=== PATIENT | male | born 1965 | race African-American/Black ===

== ENCOUNTER 2017-03-16 15:23 | Emergency (ER) | payer BC, MEDICARE ==
[2017-03-16] MEDS ORDERED: IPRATROPIUM/ALBUTEROL 0.5-2.5 MG/3 ML AMPUL NEB ONE (17:02)
--- NOTE | 2017-03-16 17:02 | ER Document Report ---
ED Medical Screen (RME) - General Chief Complaint: Leg Pain Stated Complaint: LEG PAIN, FLUID IN LEGS Time Seen by Provider: 03/16/17 17:01 Mode of Arrival: Wheelchair Information source: Patient Notes: This is a pleasant 52-year-old man with a history of hypertension, morbid obesity who presents to the emergency room with progressive shortness of breath , increased swelling and weight gain. Patient is followed by Dr. Jacobsen. He denies any chest pain. He denies any fever, chills, nausea or vomiting. TRAVEL OUTSIDE OF THE [place] IN LAST 30 DAYS: No - Related Data Allergies/Adverse Reactions: No Known Allergies Allergy (Verified 03/16/17 16:53) Past Medical History Renal/ Medical History: Denies: Hx Peritoneal Dialysis Psychiatric Medical History: Denies: Hx Depression Physical Exam - Vital signs Vitals: Temp Pulse Resp BP Pulse Ox 97.9 F 83 20 122/89 H 93 03/16/17 15:27 03/16/17 15:27 03/16/17 15:27 03/16/17 15:27 03/16/17 15:27 Course - Vital Signs Vital signs: Temp Pulse Resp BP Pulse Ox 97.9 F 83 20 122/89 H 93 03/16/17 15:27 03/16/17 15:27 03/16/17 15:27 03/16/17 15:27 03/16/17 15:27
[2017-03-16] MEDS ORDERED: FUROSEMIDE INJ/PF 40 MG/4 ML SDV IV ONE (17:19)
--- NOTE | 2017-03-16 20:58 | ER Document Report ---
ED General - General Chief Complaint: Leg Pain Stated Complaint: LEG PAIN, FLUID IN LEGS Time Seen by Provider: 03/16/17 17:01 Mode of Arrival: Wheelchair Notes: Patient is a 52-year-old male with past medical history of morbid obesity, congestive heart failure, diabetes and hypertension who presents with one month of persistent right lateral lower extremity pain and swelling. Patient states this is unchanged today but he presented due to the ongoing discomfort. Does describe a dull, constant aching, throbbing pain to the bilateral lower extremities. He denies contrary to triage assessment any shortness of breath. Likewise he denies any exertional dyspnea, exertional chest pain, chest pain, nausea, vomiting or abdominal pain. He is taking furosemide 20 mg twice a day and states this is not improved his lower extremity swelling. He has not noted anything seems to worsen his pain. He is scheduled see his primary care doctor at the end of the week for these complaints. TRAVEL OUTSIDE OF THE [place] IN LAST 30 DAYS: No - Related Data Allergies/Adverse Reactions: No Known Allergies Allergy (Verified 03/16/17 16:53) Past Medical History - General Information source: Patient - Social History Smoking Status: Never Smoker Frequency of alcohol use: None Drug Abuse: None Lives with: Family Family History: Reviewed & Not Pertinent Patient has suicidal ideation: No Patient has homicidal ideation: No Renal/ Medical History: Denies: Hx Peritoneal Dialysis Psychiatric Medical History: Denies: Hx Depression Review of Systems - Review of Systems Notes: Constitutional: Negative for fever. HENT: Negative for sore throat. Eyes: Negative for visual changes. Cardiovascular: Negative for chest pain. Respiratory: Negative for shortness of breath. Gastrointestinal: Negative for abdominal pain, vomiting or diarrhea. Genitourinary: Negative for dysuria. Musculoskeletal: Negative for back pain. Positive for bilateral lower extremity pain Skin: Negative for rash. Neurological: Negative for headaches, weakness or numbness. 10 point ROS negative except as marked above and in HPI. Physical Exam - Vital signs Vitals: Temp Pulse Resp BP Pulse Ox 97.9 F 83 20 122/89 H 93 03/16/17 15:27 03/16/17 15:27 03/16/17 15:27 03/16/17 15:27 03/16/17 15:27 Interpretation: Normal Notes: PHYSICAL EXAMINATION: GENERAL: Well-appearing, well-nourished and in no acute distress. HEAD: Atraumatic, normocephalic. EYES: Pupils equal round and reactive to light, extraocular movements intact, sclera anicteric, conjunctiva are normal. ENT: nares patent, oropharynx clear without exudates. Moist mucous membranes. NECK: Normal range of motion, supple without lymphadenopathy LUNGS: Breath sounds clear to auscultation bilaterally and equal. No wheezes rales or rhonchi. HEART: Regular rate and rhythm without murmurs ABDOMEN: Soft, nontender, normoactive bowel sounds. No guarding, no rebound. No masses appreciated. EXTREMITIES: Normal range of motion, 4+ pitting edema bilateral lower extremities NEUROLOGICAL: No focal neurological deficits. Moves all extremities spontaneously and on command. PSYCH: Normal mood, normal affect. SKIN: Warm, Dry, normal turgor, no rashes or lesions noted. Course - Re-evaluation Re-evalutation: 03/16/17 20:55 Patient presents with concerns regarding his bilateral lower extremity edema and pain that has been present for the past 1 month. Nothing is new or different today. He is overall well in appearance although is morbidly obese. Contrary to triage assessment, to me he denies any shortness of breath of any kind either at rest or on exertion. He states the only reason he is here today is because of his lower stomach swelling and the pain comes along with it. He has been taking Lasix 20 mg twice daily and this has not improved his symptoms so he is looking for an alternative solution. We discussed at length the importance of weight loss as this is the primary culprit for most of his symptoms. I've also recommended that he start compression stockings. He has a follow-up with his primary care doctor in 2 days. I do not believe any labs are indicated has again patient is denying any symptoms beyond lower extremity edema and pain. The swelling is symmetric and I did not suspect an acute DVT. At this time will discharge with return precautions and follow-up recommendations. Verbal discharge instructions given a the bedside and opportunity for questions given. Medication warnings reviewed. Patient is in agreement with this plan and has verbalized understanding of return precautions and the need for primary care follow-up in the next 24-72 hours. - Vital Signs Vital signs: Temp Pulse Resp BP Pulse Ox 97.9 F 83 18 124/90 H 96 03/16/17 15:27 03/16/17 15:27 03/16/17 20:03 03/16/17 20:03 03/16/17 20:03 - Diagnostic Test Radiology reviewed: Image reviewed, Reports reviewed Radiology results interpreted by me: 03/17/17 01:00 Chest x-ray: No pulmonary edema Discharge - Discharge Clinical Impression: Lower extremity edema Condition: Good Disposition: HOME, SELF-CARE Additional Instructions: Please follow-up with your primary care doctor for thigh-high compression stockings which will significantly assist with your swelling in your legs. Please also avoid all sugared beverages and pursue an weight loss program going 4-5 pounds per month of weight loss as this will make a dramatic improvement in your overall health and will reduce the swelling in your legs permanently. Return if you develop shortness of breath, chest pain, weakness, vomiting or any other symptoms that are worrisome to you. Referrals: LINK PORTER MD [Primary Care Provider] - Follow up as needed
[2017-03-16 21:46] VITALS: BP 124/90
== END 2017-03-16 21:49 | disposition home or self-care (01) ==
LOC: ER 15:23
DX: R60.9 Edema, unspecified (principal); M79.604 Pain in right leg; E66.01 Morbid (severe) obesity due to excess calories; I50.9 Heart failure, unspecified
CPT/HCPCS: 94640; 99283; 71010; A9270; J7620

== ENCOUNTER 2017-03-21 12:45 | Inpatient (IN) | payer BC, MEDICARE ==
--- NOTE | 2017-03-21 13:48 | ER Document Report ---
ED General - General Mode of Arrival: Medic Information source: Patient TRAVEL OUTSIDE OF THE [place] IN LAST 30 DAYS: No - HPI Patient complains to provider of: bilateral lower extremity swelling Onset: Other - 2 days ago Associated symptoms: Other - see notes above <JAEL ESPINOZA - Last Filed: 03/21/17 13:49> <PRAVEEN KENNY - Last Filed: 03/21/17 15:57> <DON FERNANDEZ - Last Filed: 03/21/17 16:55> - General Chief Complaint: Leg Swelling Stated Complaint: WEAKNESS Time Seen by Provider: 03/21/17 13:28 Notes: 52 year old male with history of CHF, diabetes, and hypertension presents to the ED via EMS complaining of bilateral leg swelling and difficulty walking that started 2 days ago. Patient states that he was diagnosed with CHF 2 years ago and reports that his fluid medications have not been changed since then. Patient then explains that "one month to one year" ago his Lasix was increased to 60 mg BID. Patient's brother states that the patient generally weighs 250- 300 lbs, and since he was diuresed on 03/15/2014, secondary to CHF, the patient' s weight has been increasing. Patient's primary care provider is Dr. Porter. Patient has an appointment with his primary care provider on 03/22/2017. EMS reports patient was 98% on room air. (JAEL ESPINOZA) This 52-year-old morbidly obese male with dilated cardiomyopathy, EF of 20-25%, diabetes and hypertension comes emergency room complaining of leg swelling for 2 days and weakness, not able to get up and walk. He weighs 475 pounds, family states he normally weighs 250 pounds and that this is all fluid. He was admitted in 2013 with anasarca and diuresed. By history he had his Lasix increased from 40 twice a day to 60 twice a day possibly a month ago. Family also reports that he nods off when they're talking to him and he sleeps in a recliner. The patient tells me that he has been a little short of breath for several months and nothing is really different today. The chest x-ray shows a very large heart without heart failure. The patient's creatinine is 2.43 with a BUN is 67. The last time his lab work was checked was 10/07/2015 when he had a BUN of 26 and creatinine 1.47 It is difficult to know how much of this is progression of renal failure, and how much of it is due to excessive diuresis. (DON FERNANDEZ) - Related Data Allergies/Adverse Reactions: No Known Allergies Allergy (Verified 03/16/17 16:53) Past Medical History - General Information source: Patient, [facility] Records - Social History Smoking Status: Former Smoker Family History: Reviewed & Not Pertinent - Past Medical History Cardiac Medical History: Reports: Hx Congestive Heart Failure, Hx Hypertension Pulmonary Medical History: Reports: Other - obstructive sleep apnea Endocrine Medical History: Reports: Hx Diabetes Mellitus Type 2 Renal/ Medical History: Denies: Hx Peritoneal Dialysis Psychiatric Medical History: Denies: Hx Depression <JAEL ESPINOZA - Last Filed: 03/21/17 13:49> Review of Systems - Review of Systems Constitutional: No symptoms reported EENT: No symptoms reported Cardiovascular: No symptoms reported Respiratory: No symptoms reported Gastrointestinal: No symptoms reported Genitourinary: No symptoms reported Male Genitourinary: No symptoms reported Musculoskeletal: See HPI, Leg swelling - bilateral, Other - difficulty walking Skin: No symptoms reported Hematologic/Lymphatic: No symptoms reported Neurological/Psychological: No symptoms reported -: Yes All other systems reviewed and negative <JAEL ESPINOZA - Last Filed: 03/21/17 13:49> Physical Exam - General General appearance: Alert In distress: None - HEENT Head: Normocephalic, Atraumatic Eyes: Normal Extraocular movements intact: Yes Pupils: PERRL - Respiratory Respiratory status: Tachypnea - 100% on nasal air - Cardiovascular Rhythm: Regular Heart sounds: Normal auscultation - Abdominal Inspection: Morbidly Obese Distension: No distension Tenderness: Nontender - Back Back: Normal - Extremities General upper extremity: Normal inspection, Normal ROM General lower extremity: Edema - Chronic bilateral lower extremity pitting edema.. No: Normal inspection - Neurological Neuro grossly intact: Yes - Psychological Associated symptoms: Normal affect, Normal mood - Skin Skin Temperature: Warm Skin Moisture: Dry Skin irregularity: other - Chronic bilateral lower extremity skin thickening. <JAEL ESPINOZA - Last Filed: 03/21/17 13:49> Course - Laboratory Result Diagrams: 03/21/17 14:33 03/21/17 14:33 <PRAVEEN KENNY - Last Filed: 03/21/17 15:57> - Laboratory Result Diagrams: 03/21/17 14:33 03/21/17 14:33 - Diagnostic Test Radiology reviewed: Image reviewed - Cardiomegaly, no CHF, Reports reviewed - Cardiomegaly without heart failure - EKG Interpretation by Me EKG shows normal: Sinus rhythm, [place], Intervals. abnormal: QRS Complexes - Borderline inferior Q waves, ST-T Waves - Minimal ST depression in inferior leads Rate: Normal - 92 Rhythm: NSR [place]/QRS: IVCD - Consults Dr. Barillas Time consulted: 16:50 Consulted provider: will see as inpatient <DON FERNANDEZ - Last Filed: 03/21/17 16:55> - Vital Signs Vital signs: Temp Pulse Resp BP Pulse Ox 98.6 F 111 H 25 H 105/56 L 98 03/21/17 13:05 03/21/17 13:05 03/21/17 15:01 03/21/17 15:02 03/21/17 15:02 - Laboratory Laboratory results interpreted by me: 03/21/17 03/21/17 03/21/17 14:33 14:33 14:33 WBC 14.2 H RBC 3.40 L Hgb 10.5 L Hct 32.2 L RDW 17.3 H Plt Count 141 L Seg Neuts % (Manual) 79 H Lymphocytes % (Manual) 2 L Monocytes % (Manual) 18 H Abs Neuts (Manual) 11.2 H Abs Lymphs (Manual) 0.3 L Abs Monocytes (Manual) 2.6 H Sodium 136.0 L Chloride 93 L Carbon Dioxide 33 H BUN 67 H Creatinine 2.43 H Est GFR ( Amer) 34 L Est GFR (Non-Af Amer) 28 L AST 12 L NT-Pro-B Natriuret Pep 3470 H Procedures - Additional Procedures IV insertion Time performed: 14:45 Additional Procedures: IV insertion - 18 guage IV inserted into left brachial vein under ultrasound guidance due to difficulty obtaining access by RN. <PRAVEEN KENNY - Last Filed: 03/21/17 15:57> Discharge <JAEL ESPINOZA - Last Filed: 03/21/17 13:49> <PRAVEEN KENNY - Last Filed: 03/21/17 15:57> - Discharge Admitting Provider: Ann-Marie Barillas covering Unit Admitted: Telemetry <DON FERNANDEZ - Last Filed: 03/21/17 16:55> - Discharge Clinical Impression: Renal insufficiency, Dehydration, Dilated cardiomyopathy, Obstructive sleep apnea syndrome Morbid obesity Qualifiers: Obesity type: due to excess calories Qualified Code(s): E66.01 - Morbid (severe ) obesity due to excess calories Hypotension Qualifiers: Hypotension type: unspecified hypotension type Qualified Code(s): I95.9 - Hypotension, unspecified Condition: Stable Disposition: ADMITTED INPATIENT Referrals: LINK PORTER MD [Primary Care Provider] - Follow up as needed Scribe Documentation - Scribe Written by Scribe:: Malina Shepard, 03/21/2017 1353 acting as scribe for :: Rashmi <JAEL ESPINOZA - Last Filed: 03/21/17 13:49>
[2017-03-21 14:55] LABS: HEMATOCRIT 32.2 % (37.9-51.0); HEMOGLOBIN 10.5 g/dL (13.5-17.0); HGB HCT DIFFERENCE -0.7; MEAN CORPUSCULAR HEMOGLOBIN 30.8 pg (27.0-33.4); MEAN CORPUSCULAR HGB CONC 32.5 g/dL (32.0-36.0); MEAN CORPUSCULAR VOLUME 95 fl (80-97); RED CELL DISTRIBUTION WIDTH 17.3 % (11.5-14.0); WHITE BLOOD COUNT 14.2 10^3/uL (4.0-10.5)
[2017-03-21 15:12] LABS: ALANINE AMINOTRANSFERASE 28 U/L (21-72); ALBUMIN 3.5 g/dL (3.5-5.0); ALKALINE PHOSPHATASE 62 U/L (38-126); ANION GAP 10 (5-19); ASPARTATE AMINO TRANSFERASE 12 U/L (17-59); BILIRUBIN,DIRECT 0.4 mg/dL (0.0-0.4); BILIRUBIN,TOTAL 0.7 mg/dL (0.2-1.3); BLOOD UREA NITROGEN 67 mg/dL (7-20); CALCIUM 9.1 mg/dL (8.4-10.2); CARBON DIOXIDE 33 mmol/L (22-30); CHLORIDE 93 mmol/L (98-107); CREATINE KINASE 55 U/L (55-170); CREATININE RESULT 2.43 mg/dL (0.52-1.25); GLUCOSE 103 mg/dL (75-110); MAGNESIUM 1.7 mg/dL (1.6-2.3); POTASSIUM 4.3 mmol/L (3.6-5.0); TOTAL PROTEIN 7.6 g/dL (6.3-8.2)
[2017-03-21 15:24] LABS: CREATINE KINASE MB 0.61 ng/mL (<4.55)
[2017-03-21 15:28] LABS: BASOPHILS % (MANUAL) 0 % (0-2); EOSINOPHILS % (MANUAL) 1 % (0-6); LYMPHOCYTES % (MANUAL) 2 % (13-45); TOTAL CELLS COUNTED 100; TROPONIN I 0.07 ng/mL
[2017-03-21 15:29] LABS: ANISOCYTOSIS 1+; HYPOCHROMASIA SLIGHT; POIKILOCYTOSIS SLIGHT; POLYCHROMASIA SLIGHT
[2017-03-21 15:30] LABS: OVALOCYTES SLIGHT
[2017-03-21 16:05] LABS: APPEARANCE,URINE CLEAR; BILIRUBIN,URINE NEGATIVE (NEGATIVE); GLUCOSE, URINE NEGATIVE (NEGATIVE); KETONES,URINE NEGATIVE (NEGATIVE); LEUKOCYTE ESTERASE,URINE NEGATIVE (NEGATIVE); NITRITE,URINE NEGATIVE (NEGATIVE); PROTEIN,URINE NEGATIVE (NEGATIVE); URINE SPECIFIC GRAVITY 1.011; UROBILINOGEN,URINE NEGATIVE mg/dL (<2.0)
[2017-03-21] MEDS ORDERED: NORMAL SALINE 1000 ML 1,000 ML IV PRN (20:20)
[2017-03-21] MEDS ORDERED: LISINOPRIL 10 MG TABLET PO ONE (20:45)
[2017-03-21 21:53] LABS: PROTHROMBIN TIME 14.8 SEC (11.4-15.4)
[2017-03-21 21:54] LABS: PARTIAL THROMBOPLASTIN TIME 31.5 SEC (23.5-35.8)
[2017-03-21 22:04] LABS: CREATININE RESULT 2.81 mg/dL (0.52-1.25)
--- NOTE | 2017-03-21 22:45 | EKG REPORT ---
SEVERITY:- ABNORMAL ECG - SINUS RHYTHM NONSPECIFIC INTRAVENTRICULAR CONDUCTION DELAY BORDERLINE INFERIOR Q WAVES MINIMAL ST DEPRESSION, INFERIOR LEADS : Confirmed by: Rae Wright 21-Mar-2017 22:44:41
[2017-03-22] MEDS: HEPARIN SOD (PORCINE) 5,000 UNIT/ML 1 ML SYRINGE SUBCUT SCH ×4 (00:32→21:42)
[2017-03-22] MEDS ORDERED: LISINOPRIL 10 MG TABLET PO ONE (00:45)
[2017-03-22 01:07] LABS: HEMATOCRIT 30.3 % (37.9-51.0); HEMOGLOBIN 10.1 g/dL (13.5-17.0); MEAN CORPUSCULAR HEMOGLOBIN 31.1 pg (27.0-33.4); MEAN CORPUSCULAR HGB CONC 33.3 g/dL (32.0-36.0); MEAN CORPUSCULAR VOLUME 93 fl (80-97); RED BLOOD COUNT 3.25 10^6/uL (4.35-5.55); RED CELL DISTRIBUTION WIDTH 17.4 % (11.5-14.0); WHITE BLOOD COUNT 15.6 10^3/uL (4.0-10.5)
[2017-03-22] MEDS: CARVEDILOL 12.5 MG TABLET PO SCH ×3 (01:12→21:48)
[2017-03-22] MEDS ORDERED: NORMAL SALINE 1000 ML 1,000 ML IV PRN (05:25)
[2017-03-22] MEDS ORDERED: LISINOPRIL 10 MG TABLET PO SCH (10:00)
[2017-03-22] MEDS ORDERED: DEXTROSE 50%-WATER 25 GM/50 ML DISP.SYRIN IV PRN ×2 (13:31)
[2017-03-22] MEDS ORDERED: GLUCAGON,HUMAN RECOMB 1 MG INJ IM PRN (13:31)
[2017-03-22] MEDS ORDERED: INSULIN LISPRO 100 UNIT/ML 3 ML VIAL SUBCUT PRN (13:31)
[2017-03-22] MEDS ORDERED: DEXTROSE 40% GEL 15 GM TUBE PO PRN ×2 (13:31)
--- NOTE | 2017-03-22 13:59 | PDOC H&P ---
History of Present Illness Admission Date/PCP: 03/21/17 23:27 [facility] [place] Patient complains of: worsening leg swelling History of Present Illness: RACHEL HUSSEIN is a 52 year old male known to my practice, very non-compliant with follow up with last office visit 10/15/2016. He presented to ED via EMS service with complain of worsening bilateral leg swelling. Patient was not very reliable with history taking. He reported that he saw foot doctor recently and he was started on Ibuprofen 800 mg for which he consumed about 4-5 tablets daily for leg and foot pain. He denied any significant chest pain or shortness of breath at the time of my evaluation but remain on supplemental oxygen. Mother at bedside reported that patient is not very concern about his health despite her input. His brother recently. There is reported increase weight gain, increase sleepiness, generalized weakness and limitation in walking and transfer. His initial evaluation in the ED was significant for anasarca level fluid retention. His morbidities include dilated cardiomyopathy with systolic CHF and LVEF in range of 20-25%, DM type 2, Obstructive sleep apnea, morbid obesity, and hypertension. Past Medical History Cardiac Medical History: Reports: Congestive Heart Failure, Hypertension Pulmonary Medical History: Reports: Other - obstructive sleep apnea Endocrine Medical History: Reports: Diabetes Mellitus Type 2 GI Medical History: Reports: Gastroesophageal Reflux Disease Psychiatric Medical History: Denies: Depression Social History Smoking Status: Former Smoker Last Time Smoked: 4 YRS Frequency of Alcohol Use: None Hx Recreational Drug Use: No Hx Prescription Drug Abuse: No - Advance Directive Resuscitation Status: Full Code Family History Family History: Reviewed & Not Pertinent Parental Family History Reviewed: Yes Children Family History Reviewed: Yes Sibling(s) Family History Reviewed.: Yes Medication/Allergy Home Medications: Aspirin [Adult Low Dose Aspirin EC] 81 mg PO DAILY 03/22/17 Carvedilol [Coreg 25 mg Tablet] 25 mg PO Q12 03/22/17 Colchicine [Colchicine 0.6 mg Tablet] 0.6 mg PO TID 03/22/17 Esomeprazole Magnesium [Nexium] 40 mg PO DAILY 03/22/17 Furosemide [Lasix] 40 mg PO BID 03/22/17 Ibuprofen [Motrin 800 mg Tablet] 800 mg PO MEALS 03/22/17 Lisinopril [Prinivil] 20 mg PO DAILY 03/22/17 Metolazone [Zaroxolyn 2.5 mg Tablet] 2.5 mg PO DAILY 03/22/17 Allergies/Adverse Reactions: No Known Allergies Allergy (Verified 03/16/17 16:53) Review of Systems Constitutional: PRESENT: fatigue, weakness, weight gain. ABSENT: as per HPI, anorexia, chills, fever(s), headache(s), night sweats, weight loss, other Eyes: ABSENT: visual disturbances Ears: ABSENT: hearing changes Nose, Mouth, and Throat: ABSENT: as per HPI, headache(s), mouth pain, sore throat, vertigo, other Cardiovascular: PRESENT: dyspnea on exertion, edema. ABSENT: as per HPI, chest pain, orthropnea, palpitations, other Respiratory: ABSENT: as per HPI, cough, dyspnea, hemoptysis, sputum, other Gastrointestinal: ABSENT: abdominal pain, constipation, diarrhea, hematemesis, hematochezia, nausea, vomiting Musculoskeletal: PRESENT: joint swelling - related to his anasarca level edema Integumentary: ABSENT: rash, wounds Neurological: PRESENT: abnormal speech - related to his acute illness, confusion - related to acute illness, weakness Psychiatric: ABSENT: anxiety, depression, homidical ideation, suicidal ideation Hematologic/Lymphatic: ABSENT: easy bleeding, easy bruising, lymphadenopathy Physical Exam Vital Signs: Temp Pulse Resp BP Pulse Ox 99.2 F 94 16 108/90 H 99 03/22/17 11:35 03/22/17 11:35 03/22/17 11:35 03/22/17 11:35 03/22/17 11:35 Intake & Output 03/21/17 03/22/17 03/23/17 06:59 06:59 06:59 Intake Total 630 Balance 630 Weight 205.7 kg General appearance: PRESENT: no acute distress, morbidly obese Head exam: PRESENT: atraumatic, normocephalic Eye exam: PRESENT: conjunctiva pink, EOMI, PERRLA. ABSENT: scleral icterus Ear exam: PRESENT: normal external ear exam Mouth exam: PRESENT: moist, tongue midline Teeth exam: ABSENT: dental caries, dental tenderness, edentulous, poor dentation , other Throat exam: ABSENT: post pharyngeal erythema, tonsillar erythema, tonsillar exudate, tonsillogmegaly, other Neck exam: PRESENT: full ROM. ABSENT: carotid bruit, JVD, lymphadenopathy, thyromegaly Respiratory exam: PRESENT: clear to auscultation anika, decreased breath sounds - at lung bases Cardiovascular exam: PRESENT: RRR. ABSENT: diastolic murmur, rubs, systolic murmur Vascular exam: PRESENT: normal capillary refill. ABSENT: pallor GI/Abdominal exam: PRESENT: normal bowel sounds, soft. ABSENT: distended, guarding, mass, organolmegaly, rebound, tenderness Rectal exam: PRESENT: deferred Extremities exam: PRESENT: pedal edema - bilateral lower extremties edema to anasarca level extended to lower back region Musculoskeletal exam: PRESENT: deformity - related to arthritis joint involvement Neurological exam: PRESENT: alert, awake, oriented to person, oriented to place , oriented to time, CN II-XII grossly intact, motor sensory deficit. ABSENT: oriented to situation Psychiatric exam: PRESENT: appropriate affect, normal mood. ABSENT: homicidal ideation, suicidal ideation Skin exam: PRESENT: dry, intact, warm. ABSENT: cyanosis, rash Results Laboratory Results: 03/22/17 00:59 03/21/17 03/22/17 23:34 00:59 WBC Cancelled 15.6 H RBC Cancelled 3.25 L Hgb Cancelled 10.1 L Hct Cancelled 30.3 L MCV Cancelled 93 MCH Cancelled 31.1 MCHC Cancelled 33.3 RDW Cancelled 17.4 H Plt Count Cancelled 124 L Impressions: Chest X-Ray 03/21/17 13:41 IMPRESSION: HEART ENLARGED WITHOUT FAILURE. NO OTHER SIGNIFICANT RADIOGRAPHIC FINDING IN THE CHEST. Assessment & Plan - Diagnosis (1) Acute worsening of stage 3 chronic kidney disease Is this a current diagnosis for this admission?: YesPlan: See admitting attending orders. (2) Chronic systolic CHF (congestive heart failure), NYHA class 3 Is this a current diagnosis for this admission?: YesPlan: See admitting attending orders. (3) Dilated cardiomyopathy Is this a current diagnosis for this admission?: YesPlan: See admitting attending orders. (4) Morbid obesity Qualifiers: Obesity type: due to excess calories Qualified Code(s): E66.01 - Morbid (severe) obesity due to excess calories Is this a current diagnosis for this admission?: YesPlan: See admitting attending orders. (5) Obstructive sleep apnea Is this a current diagnosis for this admission?: YesPlan: See admitting attending orders. - Time Time Spent: 50 to 70 Minutes Critical Time spent with patient: 15-24 minutes Medications reviewed and adjusted accordingly: Yes Anticipated discharge: SNF Within: Other - Inpatient Certification Based on my medical assessment, after consideration of the patient's comorbidities, presenting symptoms, or acuity I expect that the services needed warrant INPATIENT care.: Yes I certify that my determination is in accordance with my understanding of Medicare's requirements for reasonable and necessary INPATIENT services [42 CFR 412.3e].: Yes Medical Necessity: Failure to Improve With Outpatient Therapy, Need Close Monitoring Due to Risk of Patient Decompensation, Need For Continuous Telemetry Monitoring, Risk of Complication if Not Cared For in Hospital Post Hospital Care: D/C Data Control Clerk Supervisor Documentation - Plan Summary Plan Summary: See admitting attending orders.
--- NOTE | 2017-03-22 15:07 | PDOC CONSULTATION ---
Consultation Consult Date: 03/22/17 Consult reason:: Acute on chronic kidney disease. History of Present Illness Admission Date/PCP: 03/21/17 23:27 LINK PORTER History of Present Illness: RACHEL HUSESIN is a 52 year old male with a history of diabetes mellitus, obstructive sleep apnea but not on C Pap, morbid obesity, dilated cardiomyopathy /chronic congestive heart failure, very non-compliant with follow up with his primary care physician Dr. Porter , presented to ED via EMS service with complain of worsening bilateral leg swelling. Patient is quite hypersomnolent and he stated this been going on for quite some time and therefore he drifts into sleep when I was questioning him. He reported that he saw foot doctor recently and he was started on Ibuprofen 800 mg for which he consumed about 4-5 tablets daily for leg and foot pain for the last month or so. No apparent history of hematuria or frothy urine He denied any significant chest pain or shortness of breath other than his baseline stable difficulties. His brother recently. There is a reported increase weight gain, increase sleepiness, generalized weakness and limitation in walking and transfer. His initial evaluation in the ED was significant for anasarca level fluid retention. His echo from 2013 was reviewed by me which showed a baseline LV ejection fraction of around 20% Past Medical History Cardiac Medical History: Reports: Other - Dilated cardiomyopathy/chronic congestive heart failure Pulmonary Medical History: Reports: Other - obstructive sleep apnea Endocrine Medical History: Reports: Diabetes Mellitus Type 2 Renal/ Medical History: Reports: Chronic Kidney Disease Stage III - His last creatinine in 2014 was 1.4. GI Medical History: Reports: Gastroesophageal Reflux Disease Psychiatric Medical History: Denies: Depression Social History Smoking Status: Former Smoker Last Time Smoked: 4 YRS Frequency of Alcohol Use: None Hx Recreational Drug Use: No Hx Prescription Drug Abuse: No - Advance Directive Resuscitation Status: Full Code Family History Parental Family History Reviewed: Yes - denies ESRD Children Family History Reviewed: No Sibling(s) Family History Reviewed.: No Medication/Allergy Home Medications: Aspirin [Adult Low Dose Aspirin EC] 81 mg PO DAILY 03/22/17 Carvedilol [Coreg 25 mg Tablet] 25 mg PO Q12 03/22/17 Colchicine [Colchicine 0.6 mg Tablet] 0.6 mg PO TID 03/22/17 Esomeprazole Magnesium [Nexium] 40 mg PO DAILY 03/22/17 Furosemide [Lasix] 40 mg PO BID 03/22/17 Ibuprofen [Motrin 800 mg Tablet] 800 mg PO MEALS 03/22/17 Lisinopril [Prinivil] 20 mg PO DAILY 03/22/17 Metolazone [Zaroxolyn 2.5 mg Tablet] 2.5 mg PO DAILY 03/22/17 Allergies/Adverse Reactions: No Known Allergies Allergy (Verified 03/16/17 16:53) Review of Systems Review of Systems: Constitutional: PRESENT: as per HPI. ABSENT: chills, fever(s), headache(s), weight gain, weight loss Eyes: ABSENT: visual disturbances Ears: ABSENT: hearing changes Cardiovascular: ABSENT: chest pain, orthropnea, palpitations Respiratory: ABSENT: cough, hemoptysis Gastrointestinal: ABSENT: abdominal pain, constipation, diarrhea, hematemesis, hematochezia, nausea, vomiting Genitourinary: ABSENT: dysuria, hematuria Musculoskeletal: ABSENT: joint swelling Integumentary: ABSENT: rash, wounds Neurological: ABSENT: abnormal gait, abnormal speech, confusion, dizziness, focal weakness, syncope Psychiatric: ABSENT: anxiety, depression, homicidal ideation, suicidal ideation Endocrine: ABSENT: cold intolerance, heat intolerance, polydipsia, polyuria Hematologic/Lymphatic: ABSENT: easy bleeding, easy bruising, lymphadenopathy Physical Exam Vital Signs: Temp Pulse Resp BP Pulse Ox 99.2 F 94 16 108/90 H 99 03/22/17 11:35 03/22/17 11:35 03/22/17 11:35 03/22/17 11:35 03/22/17 11:35 Intake & Output 03/21/17 03/22/17 03/23/17 06:59 06:59 06:59 Intake Total 630 Balance 630 Weight 205.7 kg General appearance: PRESENT: no acute distress, morbidly obese Eye exam: PRESENT: conjunctiva pink, EOMI, PERRLA Ear exam: PRESENT: normal external ear exam Mouth exam: PRESENT: moist Neck exam: ABSENT: lymphadenopathy, meningismus, tenderness, thyromegaly, tracheal deviation Respiratory exam: PRESENT: clear to auscultation anika, symmetrical. ABSENT: crackles, rhonchi Cardiovascular exam: PRESENT: +S1, +S2 GI/Abdominal exam: PRESENT: normal bowel sounds, soft. ABSENT: distended, organomegaly, tenderness Extremities exam: PRESENT: +1 edema Neurological exam: PRESENT: altered - Ration is quite lethargic of but easily arousable when asked about questions. He easily drifts back to sleep, oriented to person, oriented to place Skin exam: PRESENT: mottled - His got chronic venous stasis changes in both lower extremities. ABSENT: erythema Results Laboratory Results: 03/22/17 00:59 03/21/17 03/22/17 23:34 00:59 WBC Cancelled 15.6 H RBC Cancelled 3.25 L Hgb Cancelled 10.1 L Hct Cancelled 30.3 L MCV Cancelled 93 MCH Cancelled 31.1 MCHC Cancelled 33.3 RDW Cancelled 17.4 H Plt Count Cancelled 124 L Impressions: Chest X-Ray 03/21/17 13:41 IMPRESSION: HEART ENLARGED WITHOUT FAILURE. NO OTHER SIGNIFICANT RADIOGRAPHIC FINDING IN THE CHEST. Assessment & Plan - Diagnosis (1) Acute worsening of stage 3 chronic kidney disease Is this a current diagnosis for this admission?: YesPlan: Patient is got obviously multiple etiologies including prerenal causes of dilated cardiomyopathy with a low ejection fraction of around 20% with additional insults from chronic usage of NSAIDs leading to possible NSAID nephropathy. Advised him to discontinue the use of such medications now and that and in the future for obviuos reasons. Patient is got evidences of fluid overload. He is also showing evidences of pulmonary hypertension and most likely is a CO2 retainer. ABG if done might reveal that. Recommend slow diuresis. No indications for renal replacements. Follow-up on echo which is being done now. (2) Chronic systolic CHF (congestive heart failure), NYHA class 3 Is this a current diagnosis for this admission?: YesPlan: Agree with diuresis but use caution. monitor (3) Dilated cardiomyopathy Is this a current diagnosis for this admission?: Yes (4) Morbid obesity Qualifiers: Obesity type: due to excess calories Qualified Code(s): E66.01 - Morbid (severe) obesity due to excess calories Is this a current diagnosis for this admission?: Yes (5) Obstructive sleep apnea Is this a current diagnosis for this admission?: YesPlan: He states he has been diagnosed to have sleep apnea but has not had a Cpap because of lack of insurance. He states he just got insurance and will be looking to obtain one of that in the near future. He is quite hypersomnolent and the has other features with history of being possibly a CO2 retainer.
[2017-03-22] MEDS: FUROSEMIDE 40 MG TABLET PO SCH (17:11)
[2017-03-23] MEDS: HEPARIN SOD (PORCINE) 5,000 UNIT/ML 1 ML SYRINGE SUBCUT SCH ×3 (05:14→21:34)
[2017-03-23 07:09] LABS: ANION GAP 17 (5-19); BLOOD UREA NITROGEN 101 mg/dL (7-20); CALCIUM 8.6 mg/dL (8.4-10.2); CARBON DIOXIDE 30 mmol/L (22-30); CHLORIDE 89 mmol/L (98-107); CREATININE RESULT 4.89 mg/dL (0.52-1.25); GLUCOSE 113 mg/dL (75-110); MAGNESIUM 1.8 mg/dL (1.6-2.3); PHOSPHORUS 9.8 mg/dL (2.5-4.5); POTASSIUM 4.9 mmol/L (3.6-5.0); SODIUM 135.6 mmol/L (137-145)
[2017-03-23 08:14] LABS: FOLATE 8.16 ng/mL (>2.76)
--- NOTE | 2017-03-23 09:35 | XCELERA REPORT ---
[address] [address] Transthoracic Echocardiogram Report Name: RACHEL HUSSEIN Age: 52 yrs Gender: Male : 1965 Patient Status: Inpatient Patient Location: 5\S\529\S\A Study Date: 03/22/2017 02:27 PM Height: 70 in Weight: 453 lb BSA: 3.0 m2 Procedure: A complete two-dimensional transthoracic echocardiogram was performed (2D, M-mode, spectral and color flow Doppler). The study was technically difficult with many images being suboptimal in quality. Reason For Study: Dilated Cardiomypathy with anasarca Ordering Physician: LINK PORTER Performed By: Taran Otero Interpretation Summary The Ejection Fraction estimate is <20% Left ventricular systolic function is severely reduced. The left ventricle is severely dilated. There is borderline concentric left ventricular hypertrophy. Doppler measurements suggest pseudonormalized left ventricular relaxation, which is associated with grade II/IV or mild to moderate diastolic dysfunction There is severe global hypokinesis of the left ventricle. The left ventricular apex is not well visualized. The right ventricular systolic function is mildly reduced. The right atrium is mildly dilated. The left atrium is moderately dilated. There is a mild to moderate amount of mitral regurgitation There is no mitral valve stenosis. No aortic regurgitation is present. There is no aortic valve stenosis There is a mild amount of tricuspid regurgitation There is moderate pulmonary hypertension by echo Right ventricular systolic pressure is estimated to be elevated at 50- 60mmHg. The inferior vena cava appeared dilated and decreased < 50% with respiration (RAP 15-20 mmHg) Minimal pericardial effusion. MMode/2D Measurements \T\ Calculations RVDd: 3.3 cm LVIDd: 8.6 cm FS: 8.3 % Ao root diam: 3.0 cm IVSd: 1.0 cm LVIDs: 7.9 cm EDV(Teich): 401.2 ml LVPWd: 1.0 cm ESV(Teich): 330.9 ml Ao root area: 7.2 cm2 EF(Teich): 17.5 % LA dimension: 5.2 cm Doppler Measurements \T\ Calculations MV E max desmond: MV P1/2t max desmond: Ao V2 max: LV V1 max P.8 cm/sec 96.8 cm/sec 117.0 cm/sec 1.6 mmHg MV A max desmond: MV P1/2t: 35.2 msec Ao max PG: LV V1 max: 47.0 cm/sec 5.5 mmHg 63.5 cm/sec MV E/A: 2.1 MVA(P1/2t): 6.2 cm2 MV dec slope: 805.3 cm/sec2 PA V2 max: PI end-d desmond: TR max desmond: RAP systole: 94.4 cm/sec 168.3 cm/sec 312.6 cm/sec 10.0 mmHg PA max PG: TR max P.6 mmHg 39.5 mmHg RVSP(TR): 49.5 mmHg Left Ventricle The left ventricle is severely dilated. There is borderline concentric left ventricular hypertrophy. Left ventricular systolic function is severely reduced. The Ejection Fraction estimate is <20%. Doppler measurements suggest pseudonormalized left ventricular relaxation, which is associated with grade II/IV or mild to moderate diastolic dysfunction. There is severe global hypokinesis of the left ventricle. The left ventricular apex is not well visualized. Right Ventricle The right ventricle is grossly normal size. There is normal right ventricular wall thickness. The right ventricular systolic function is mildly reduced. Atria The right atrium is mildly dilated. The left atrium is moderately dilated. Interarterial septum not well visualized and not well dopplered. Cannot comment on ASD/PFO presence. Mitral Valve The mitral valve leaflets are sclerotic, but show no functional abnormalities. There is no mitral valve stenosis. There is a mild to moderate amount of mitral regurgitation. Aortic Valve The aortic valve is not well visualized secondary to technical limitations. There is no aortic valve stenosis. No aortic regurgitation is present. Tricuspid Valve The tricuspid valve is not well visualized secondary to technical limitations. There is no tricuspid stenosis. There is a mild amount of tricuspid regurgitation. There is moderate pulmonary hypertension by echo. Right ventricular systolic pressure is estimated to be elevated at 50- 60mmHg. Pulmonic Valve The pulmonic valve is not well visualized. Great Vessels The aortic root is not well visualized. The inferior vena cava appeared dilated and decreased < 50% with respiration (RAP 15-20 mmHg). Effusions Minimal pericardial effusion. : LINK PORTER > Rae Wright
[2017-03-23] MEDS ORDERED: METOLAZONE 2.5 MG TABLET PO SCH (10:00)
[2017-03-23] MEDS ORDERED: ASPIRIN 81 MG TABLET, ENT COATED PO SCH (10:00)
[2017-03-23] MEDS: FUROSEMIDE 40 MG TABLET PO SCH ×2 (11:49→18:37)
[2017-03-23] MEDS: METOLAZONE 2.5 MG TABLET PO SCH (11:51)
[2017-03-23] MEDS: CARVEDILOL 12.5 MG TABLET PO SCH ×2 (11:51→21:33)
--- NOTE | 2017-03-23 20:34 | PDOC PROGRESS REPORT ---
Subjective Progress Note for:: 03/23/17 Subjective:: Patient reported feeling fine but did demonstrate episodes of incoherent verbal responses and intermittent muscle twitching movement during my evaluation. Brother at bedside reported episodes of similar events and vomiting earlier today. He denied chest pain or difficulty with breathing. Remain on supplemental oxygen via nasal canula with satisfactory saturation at 2.5L/ minute. No reported fever or chills. Urine output so far today has been fair. He was evaluated by Dr Joey Benitez, field artillery operations man since my last clinical evaluation. Physical Exam Vital Signs: Temp Pulse Resp BP Pulse Ox 98.1 F 108 H 21 H 109/92 H 97 03/23/17 14:55 03/23/17 14:55 03/23/17 14:55 03/23/17 14:55 03/23/17 17:00 Intake & Output 03/22/17 03/23/17 03/24/17 06:59 06:59 06:59 Intake Total 630 2756 477 Output Total 110 800 Balance 630 2406 -323 Weight 205.7 kg 205.8 kg Physical Exam: General appearance: PRESENT: no acute distress, morbidly obese Head exam: PRESENT: atraumatic, normocephalic Eye exam: PRESENT: conjunctiva pink, EOMI, PERRLA. ABSENT: scleral icterus Mouth exam: PRESENT: moist, tongue midline Respiratory exam: PRESENT: clear to auscultation anika, decreased breath sounds - at lung bases Cardiovascular exam: PRESENT: RRR. ABSENT: diastolic murmur, rubs, systolic murmur GI/Abdominal exam: PRESENT: normal bowel sounds, soft. ABSENT: distended, guarding, mass, organomegaly, rebound, tenderness Extremities exam: PRESENT: pedal edema - bilateral lower extremties edema to anasarca level extended to lower back region Musculoskeletal exam: PRESENT: deformity - related to arthritis joint involvement Neurological exam: PRESENT: alert, awake, oriented to person, oriented to place , oriented to time, CN II-XII grossly intact, motor sensory deficit. ABSENT: oriented to situation Psychiatric exam: PRESENT: appropriate affect, normal mood. ABSENT: homicidal ideation, suicidal ideation Skin exam: PRESENT: dry, intact, warm. ABSENT: cyanosis, rash Results Laboratory Results: 03/22/17 00:59 03/23/17 06:20 03/23/17 03/23/17 06:20 06:20 Retic Count (auto) 1.92 Absolute Retic 0.063 Sodium 135.6 L Potassium 4.9 Chloride 89 L Carbon Dioxide 30 Anion Gap 17 BUN 101 H Creatinine 4.89 H Est GFR ( Amer) 15 L Est GFR (Non-Af Amer) 13 L Glucose 113 H Calcium 8.6 Phosphorus 9.8 H Magnesium 1.8 Iron 17.9 L TIBC 258 % Saturation 7 Ferritin 422.00 Vitamin B12 795.0 Folate 8.16 Impressions: Chest X-Ray 03/21/17 13:41 IMPRESSION: HEART ENLARGED WITHOUT FAILURE. NO OTHER SIGNIFICANT RADIOGRAPHIC FINDING IN THE CHEST. Assessment & Plan - Diagnosis (1) Acute worsening of stage 3 chronic kidney disease Is this a current diagnosis for this admission?: YesPlan: I discussed case with Dr. Turner, physician at [facility] via the transfer coordination center regarding possible transfer to [facility] for renal-cardiovascuar services intervention in view of his worsening renal status and echocardiogram revealing worsening dilated cardiomyopathy with LVEF < 20%. Presently, he is accepted but no assign bed. This may not be available in the next 24 hours. I will approach other tertiary center for transfer in view of his clinical status if necessary. Start on PhosLo 1334 mg p.o ac. D/C Ecotrin usage. Maintain on Heparin for DVT prophylaxis. (2) Chronic systolic CHF (congestive heart failure), NYHA class 3 Is this a current diagnosis for this admission?: YesPlan: See admitting attending orders. (3) Dilated cardiomyopathy Is this a current diagnosis for this admission?: YesPlan: His recent echocardiogram did revealed LVEF < 20 % which is downward trend compared with his 2014 echocardiogram evaluation. Patient denied any incident of myocardial infarction in the interim. I did discuss case with [facility] transfer center and awaiting response. We will contine current medial management. (4) Morbid obesity Qualifiers: Obesity type: due to excess calories Qualified Code(s): E66.01 - Morbid (severe) obesity due to excess calories Is this a current diagnosis for this admission?: Yes (5) Obstructive sleep apnea Is this a current diagnosis for this admission?: YesPlan: See attending attending orders. Obtain ABG. (6) Hyperphosphatemia Is this a current diagnosis for this admission?: YesPlan: See attending physician orders - Time Time Spent with patient: 35 or more minutes Medications reviewed and adjusted accordingly: Yes Anticipated discharge: Tertiary Hospital Within: Other - Inpatient Certification Based on my medical assessment, after consideration of the patient's comorbidities, presenting symptoms, or acuity I expect that the services needed warrant INPATIENT care.: Yes I certify that my determination is in accordance with my understanding of Medicare's requirements for reasonable and necessary INPATIENT services [42 CFR 412.3e].: Yes Medical Necessity: Need Close Monitoring Due to Risk of Patient Decompensation, Need For Continuous Telemetry Monitoring, Risk of Complication if Not Cared For in Hospital Post Hospital Care: D/C or Transfer Summary - Plan Summary Plan Summary: See attending physician orders.
--- NOTE | 2017-03-23 20:59 | PDOC TRANSFER SUMMARY ---
General Admission Date/PCP: 03/21/17 23:27 LINK PORTER Admission Date: 03/21/17 Transfer Date: 03/23/17 Accepting Facility: [facility] Accepting Physician: Dr Odell Resuscitation Status: Full Code - Transfer Diagnosis (1) Acute worsening of stage 3 chronic kidney disease Is this a current diagnosis for this admission?: Yes (2) Chronic systolic CHF (congestive heart failure), NYHA class 3 Is this a current diagnosis for this admission?: Yes (3) Dilated cardiomyopathy Is this a current diagnosis for this admission?: Yes (4) Morbid obesity Is this a current diagnosis for this admission?: Yes (5) Obstructive sleep apnea Is this a current diagnosis for this admission?: Yes (6) Hyperphosphatemia Is this a current diagnosis for this admission?: Yes - Transfer Medications Home Medications: Aspirin [Adult Low Dose Aspirin EC] 81 mg PO DAILY 03/22/17 Carvedilol [Coreg 25 mg Tablet] 25 mg PO Q12 03/22/17 Colchicine [Colchicine 0.6 mg Tablet] 0.6 mg PO TID 03/22/17 Esomeprazole Magnesium [Nexium] 40 mg PO DAILY 03/22/17 Furosemide [Lasix] 40 mg PO BID 03/22/17 Ibuprofen [Motrin 800 mg Tablet] 800 mg PO MEALS 03/22/17 Lisinopril [Prinivil] 20 mg PO DAILY 03/22/17 Metolazone [Zaroxolyn 2.5 mg Tablet] 2.5 mg PO DAILY 03/22/17 Transfer Medications: Current Medications Calcium Acetate (Phoslo 667 Mg Capsule) 1,334 mg PO MEALS KAUSHIK Stop: 04/23/17 07:59 Carvedilol (Coreg 12.5 Mg Tablet) 25 mg PO Q12 KAUSHIK Stop: 04/21/17 21:59 Last Admin: 03/23/17 11:51 Dose: Not Given Dextrose (Dextrose Inj 50% Syringe (25 Gm/50 Ml)) 12.5 gm IV PRN PRN; Protocol PRN Reason: FOR BG 50-69 IN ALERT PATIENT Stop: 04/21/17 13:30 Dextrose (Dextrose Inj 50% Syringe (25 Gm/50 Ml)) 25 gm IV PRN PRN PRN Reason: Protocol Stop: 04/21/17 13:30 Furosemide (Lasix 40 Mg Tablet) 40 mg PO BID KAUSHIK Stop: 04/21/17 17:59 Last Admin: 03/23/17 18:37 Dose: 40 mg Glucagon (Glucagen Inj 1 Mg Vial) 1 mg IM PRN PRN; Protocol PRN Reason: Evaluate for BG < 70 Stop: 04/21/17 13:30 Glucose (Glutose 40% Gel 15 Gm Tube) 30 gm PO PRN PRN; Protocol PRN Reason: FOR BG < 50 IN ALERT PATIENT Stop: 04/21/17 13:30 Glucose (Glutose 40% Gel 15 Gm Tube) 15 gm PO PRN PRN; Protocol PRN Reason: FOR BG 50-69 IN ALERT PATIENT Stop: 04/21/17 13:30 Heparin Sodium (Porcine) (Heparin Inj 5,000 Units/Ml 1 Ml Syringe) 5,000 unit SUBCUT Q8 KAUSHIK Stop: 04/20/17 21:59 Last Admin: 03/23/17 18:41 Dose: Not Given Insulin Human Lispro (Humalog Insulin 100 Unit/1 Ml 3 Ml Vial) 0 - 12 unit SUBCUT ACHSP PRN PRN Reason: Protocol Stop: 04/21/17 13:30 Metolazone (Zaroxolyn 2.5 Mg Tablet) 2.5 mg PO QAM KAUSHIK Stop: 04/22/17 07:59 Last Admin: 03/23/17 11:51 Dose: 2.5 mg Sodium Chloride (Saline Flush 2.5 Ml Monoject Prefil Syrin) 2.5 ml IV Q8 KAUSHIK Stop: 04/21/17 21:59 Last Admin: 03/23/17 18:41 Dose: 2.5 ml - Allergies Allergies/Adverse Reactions: No Known Allergies Allergy (Verified 03/16/17 16:53) Hospital Course Hospital Course: Patient presented to [facility] ED on 03/21/2017 with cc: worsening generalized swelling. Initial evaluation did suggested acute on chronic kidney disease with anasarca. He has history of dilated cardiomyopathy, HTN, morbid obesity, LUBNA, and Diabetes mellitus type 2. He was recently exposed to NSAID usage. He was managed with fluid restriction and diuretics. he was seen in consultation by human resources intern, Dr Joey Benitez. He continue to make reasonable amount of urine but demonstrate episodes of incoherent speech, muscle twitching and intermittent vomiting. His BUN trend upward to above 100 with creatinine of 4.8. His echocardiogram suggested worsening LVEF at less than 20% with dilated cadiomyopathy. Patient denied any interim chest pain. Patient is being transferred to [facility] for further renal-cardiovascular and vascular surgery services intervention. I discussed care plan with patient at bedside and he is in agreement with transfer. Physical Exam Vital Signs: Temp Pulse Resp BP Pulse Ox 98.1 F 108 H 21 H 109/92 H 97 03/23/17 14:55 03/23/17 14:55 03/23/17 14:55 03/23/17 14:55 03/23/17 17:00 Intake & Output 03/22/17 03/23/17 03/24/17 06:59 06:59 06:59 Intake Total 630 2756 477 Output Total 110 800 Balance 630 8496 -323 Weight 205.7 kg 205.8 kg General appearance: PRESENT: no acute distress, morbidly obese Head exam: PRESENT: atraumatic, normocephalic Eye exam: PRESENT: conjunctiva pink, EOMI, PERRLA. ABSENT: scleral icterus Mouth exam: PRESENT: moist, tongue midline Respiratory exam: PRESENT: clear to auscultation anika, decreased breath sounds - at lung bases Cardiovascular exam: PRESENT: RRR. ABSENT: diastolic murmur, rubs, systolic murmur GI/Abdominal exam: PRESENT: normal bowel sounds, soft. ABSENT: distended, guarding, mass, organomegaly, rebound, tenderness Extremities exam: PRESENT: pedal edema - bilateral lower extremties edema to anasarca level extended to lower back region Musculoskeletal exam: PRESENT: deformity - related to arthritis joint involvement Neurological exam: PRESENT: alert, awake, oriented to person, oriented to place , oriented to time, CN II-XII grossly intact, motor sensory deficit. ABSENT: oriented to situation Psychiatric exam: PRESENT: appropriate affect, normal mood. ABSENT: homicidal ideation, suicidal ideation Skin exam: PRESENT: dry, intact, warm. ABSENT: cyanosis, rash Results Laboratory Results: 03/22/17 00:59 03/23/17 06:20 03/23/17 03/23/17 06:20 06:20 Retic Count (auto) 1.92 Absolute Retic 0.063 Sodium 135.6 L Potassium 4.9 Chloride 89 L Carbon Dioxide 30 Anion Gap 17 BUN 101 H Creatinine 4.89 H Est GFR ( Amer) 15 L Est GFR (Non-Af Amer) 13 L Glucose 113 H Calcium 8.6 Phosphorus 9.8 H Magnesium 1.8 Iron 17.9 L TIBC 258 % Saturation 7 Ferritin 422.00 Vitamin B12 795.0 Folate 8.16 Impressions: Chest X-Ray 03/21/17 13:41 IMPRESSION: HEART ENLARGED WITHOUT FAILURE. NO OTHER SIGNIFICANT RADIOGRAPHIC FINDING IN THE CHEST. Plan Discharge Plan: Transfer to [facility] for further tertiary care. Time Spent: Greater than 30 Minutes
[2017-03-23] MEDS ORDERED: ONDANSETRON HCL INJ/PF 4 MG/2 ML SDV ONE (22:12)
[2017-03-23] MEDS ORDERED: ONDANSETRON HCL INJ/PF 4 MG/2 ML SDV IV PRN (22:26)
[2017-03-23 23:48] LABS: ARTERIAL BLOOD BASE EXCESS 4.9 mmol/L
[2017-03-24 00:18] VITALS: BP 129/82
[2017-03-24] MEDS ORDERED: PROPOFOL 100 ML IV ONE (01:13)
[2017-03-24] MEDS ORDERED: NOREPINEPHRINE BITARTRATE INJ/PF 4 MG/4 ML SDV IV ONE ×2 (01:48→04:17)
[2017-03-24 02:10] LABS: ARTERIAL BLOOD BASE EXCESS 4.5 mmol/L
[2017-03-24] MEDS ORDERED: SODIUM BICARBONATE 8.4% INJ 50 MEQ/50 ML DISP.SYRIN ONE ×2 (02:24→03:03)
[2017-03-24 02:46] LABS: ALANINE AMINOTRANSFERASE 38 U/L (21-72); ALBUMIN 2.9 g/dL (3.5-5.0); ALKALINE PHOSPHATASE 50 U/L (38-126); ANION GAP 16 (5-19); ASPARTATE AMINO TRANSFERASE 72 U/L (17-59); BILIRUBIN,DIRECT 0.6 mg/dL (0.0-0.4); BILIRUBIN,TOTAL 0.7 mg/dL (0.2-1.3); BLOOD UREA NITROGEN 120 mg/dL (7-20); CALCIUM 7.9 mg/dL (8.4-10.2); CARBON DIOXIDE 29 mmol/L (22-30); CHLORIDE 91 mmol/L (98-107); CREATININE RESULT 4.11 mg/dL (0.52-1.25); GLUCOSE 114 mg/dL (75-110); POTASSIUM 5.3 mmol/L (3.6-5.0); SODIUM 135.9 mmol/L (137-145); TOTAL PROTEIN 6.6 g/dL (6.3-8.2)
[2017-03-24] MEDS ORDERED: DEXTROSE 5%-WATER 1000 ML 1,000 ML with SODIUM BICARBONATE 50 MEQ IV ONE ×2 (03:00)
[2017-03-24] MEDS ORDERED: CEFTRIAXONE INJ 1000 MG VIAL IV PRN (03:06)
[2017-03-24] MEDS ORDERED: SODIUM BICARBONATE 8.4% INJ 50 MEQ/50 ML DISP.SYRIN IV ONE (03:15)
[2017-03-24] MEDS ORDERED: SODIUM BICARBONATE 8.4% INJ 50 MEQ/50 ML DISP.SYRIN IV PRN (03:15)
[2017-03-24] MEDS ORDERED: PROPOFOL 100 ML IV PRN (03:20)
[2017-03-24] MEDS ORDERED: DEXTROSE 5%-WATER 250 ML with NOREPINEPHRINE BITARTRATE 4 MG IV PRN ×2 (03:21)
[2017-03-24] MEDS: CLINDAMYCIN 300 MG/D5W RTU 300 MG/50 ML RTUPB IV SCH ×3 (03:30→15:30)
[2017-03-24] MEDS ORDERED: CLINDAMYCIN PHOSPHATE INJ 300 MG/2 ML SDV IV PRN (03:30)
[2017-03-24] MEDS ORDERED: CEFTRIAXONE 1 GM/D5W RTU 1 GM/50 ML RTUPB IV SCH (04:00)
[2017-03-24] MEDS: HEPARIN SOD (PORCINE) 5,000 UNIT/ML 1 ML SYRINGE SUBCUT SCH ×2 (06:00→14:00)
[2017-03-24] MEDS: METOLAZONE 2.5 MG TABLET PO SCH (08:00)
[2017-03-24] MEDS: CALCIUM ACETATE 667 MG CAPSULE PO SCH ×3 (08:00→17:00)
[2017-03-24] MEDS: CARVEDILOL 12.5 MG TABLET PO SCH (10:00)
[2017-03-24] MEDS: FUROSEMIDE 40 MG TABLET PO SCH ×2 (10:00→18:00)
--- NOTE | 2017-05-17 18:23 | Progress Note ---
Provider Note Provider Note: Patient discharged diagnosis of acute worsening of stage 3 chronic kidney disease is been clarify to include 1. Acute Kidney injury 2. chronic kidney disease stage 3.
== END 2017-03-24 03:57 | disposition short-term general hospital (02) | DRG 683 ==
LOC: ER 12:45 → UNDOADMIN 17:30 → EH 17:30 → 5 22:36 → EH 23:27 → 5 03-23 14:30 → ICU 03-24 00:51
PROVIDERS: ADMIT Internal Medicine Geriatric Medicine; ATTEND Internal Medicine Geriatric Medicine
PROC: 0BH17EZ Insertion of Endotracheal Airway into Trachea, Via Natural or Artificial Opening (ICD-10-PCS; principal; 2017-03-24)
PROC: 5A1935Z Respiratory Ventilation, Less than 24 Consecutive Hours (ICD-10-PCS; 2017-03-24)
DX: N17.9 Acute kidney failure, unspecified (principal); I13.0 Hypertensive heart and chronic kidney disease with heart failure and stage 1 through stage 4 chronic kidney disease, or unspecified chronic kidney disease; I50.22 Chronic systolic (congestive) heart failure; Z68.44 Body mass index [BMI] 60.0-69.9, adult; I42.9 Cardiomyopathy, unspecified; E86.0 Dehydration; E11.22 Type 2 diabetes mellitus with diabetic chronic kidney disease; N18.3 Chronic kidney disease, stage 3 (moderate); E66.01 Morbid (severe) obesity due to excess calories; E83.39 Other disorders of phosphorus metabolism; I27.2 Other secondary pulmonary hypertension; I87.8 Other specified disorders of veins; G47.33 Obstructive sleep apnea (adult) (pediatric); K21.9 Gastro-esophageal reflux disease without esophagitis; Z91.19 Patient's noncompliance with other medical treatment and regimen; Z87.891 Personal history of nicotine dependence; Z79.899 Other long term (current) drug therapy; Z79.82 Long term (current) use of aspirin; Z78.1 Physical restraint status
CPT/HCPCS: 31500; 36415; 36600; 51702; 71010; 74000; 80048; 80053; 81001; 82550; 82553; 82565; 82607; 82728; 82746; 82803; 82962; 83540; 83550; 83605; 83735; 83880; 84100; 84466; 84484; 85025; 85027; 85045; 85610; 85730; 93005; 93010; 93306; 94002; 99285; J0696; J1644; J2405; J2704; J3490; J7030; J7060